=== PATIENT | female | born 1995 | race Caucasian/White ===

== ENCOUNTER 2024-06-03 02:51 | Emergency (ER) | payer SELFPAY ==
[~2024-06-03] VITALS: Ht 157.5 cm; Wt 52.2 kg
[2024-06-03] MEDS ORDERED: ONDANSETRON ODT 4 MG TAB.RAPDIS ONE (03:43)
[2024-06-03] MEDS ORDERED: ACETAMINOPHEN 500 MG TABLET ONE (03:43)
[2024-06-03 03:47] LABS: *BILIRUBIN,URIN NEGATIVE (NEGATIVE); *BLOOD, URINE NEGATIVE (NEGATIVE); *CLARITY,URINE CLEAR (CLEAR); *COLOR,URINE YELLOW (YELLOW); *KETONES,URINE NEGATIVE (NEGATIVE); *PROTEIN,URINE NEGATIVE (NEGATIVE); *UROBILINOGEN,URINE 0.2 E.U./dl (NORMAL); LEUKOCYTE ESTERASE ,URINE NEGATIVE (NEGATIVE); NITRITE, URINE NEGATIVE (NEGATIVE); PH,URINE 7.5 (5.0-8.0); UGLUCOSE NEGATIVE (NEGATIVE)
[2024-06-03] MEDS: ONDANSETRON ODT 4 MG TAB.RAPDIS SL ONE (03:50)
[2024-06-03] MEDS: ACETAMINOPHEN 500 MG TABLET PO ONE (03:50)
[2024-06-03 03:52] LABS: *URINE HCG, QUAL NEGATIVE (NEGATIVE)
[2024-06-03] MEDS ORDERED: ONDA4TAB11 PO (05:15)
[2024-06-03] MEDS ORDERED: CYCL10TA9 PO (05:15)
[2024-06-03 05:32] VITALS: BP 138/79; O2SAT 100
== END 2024-06-03 05:34 | disposition home or self-care (01) ==
LOC: ER 03:04
DX: S16.1XXA Strain of muscle, fascia and tendon at neck level, initial encounter (principal); S39.012A Strain of muscle, fascia and tendon of lower back, initial encounter; S09.8XXA Other specified injuries of head, initial encounter; S20.229A Contusion of unspecified back wall of thorax, initial encounter; S30.0XXA Contusion of lower back and pelvis, initial encounter; R51.9 Headache, unspecified; R10.2 Pelvic and perineal pain; F17.290 Nicotine dependence, other tobacco product, uncomplicated; W18.39XA Other fall on same level, initial encounter; Y93.89 Activity, other specified; Y92.89 Other specified places as the place of occurrence of the external cause; Y99.8 Other external cause status
CPT/HCPCS: 70450; 72125; 72131; 84703; A4606; A4663; A9150; Q0162